=== PATIENT | male | born 1990 | race Caucasian/White ===

== ENCOUNTER 2019-12-05 00:29 | Emergency (ER) | payer OTHER ==
[~2019-12-05] VITALS: Ht 175.3 cm; Wt 65.0 kg
[2019-12-05] MEDS ORDERED: HALOPERIDOL LACTATE 5MG/ML VIAL IM ONE (02:00)
[2019-12-05] MEDS ORDERED: LORAZEPAM 2MG/ML CPJ IM ONE (02:00)
[2019-12-05 02:21] LABS: CHLORIDE 105 mEq/L (98-107)
[2019-12-05 02:28] LABS: ETHANOL BLOOD < 10 mg/dL
[2019-12-05 02:44] LABS: EOSINOPHILS % 2.1 % (0.0-5.0); HEMATOCRIT. 41.4 % (42.0-52.0); HEMOGLOBIN. 14.9 g/dL (14.0-18.0); LYMPHOCYTES % 17.1 % (20.0-50.0); MEAN CORPUSCULAR HEMOGLOBIN 34.5 pg (28.0-32.0); MEAN CORPUSCULAR VOLUME 95.8 fL (80.0-94.0); MEAN PLATELET VOLUME 8.1 fl (7.4-10.4); MONOCYTES % 8.1 % (2.0-8.0); NEUTROPHILS % 71.7 % (40.0-76.0); PLATELET 261 x1000/uL (130-400); RED BLOOD CELL COUNT 4.32 mill/uL (4.7-6.1); RED CELL DISTRIBUTION WIDTH 13.6 % (11.6-14.6)
[2019-12-05 02:53] LABS: CLARITY URINE CLEAR (CLEAR); COLOR URINE YELLOW (YELLOW); KETONES URINE 2+ (NEGATIVE); LEUKOCYTE ESTERASE URINE NEGATIVE (NEGATIVE); NITRITE URINE NEGATIVE (NEGATIVE); OCCULT BLOOD URINE NEGATIVE (NEGATIVE); PH URINE 6.5 (4.5-8.0); PROTEIN URINE NEGATIVE (NEGATIVE); SPECIFIC GRAVITY URINE 1.011 (1.005-1.030); UROBILINOGEN URINE 0.2 E.U./dL (0.2-1.0)
[2019-12-05 03:14] LABS: *AMPHETAMINES SCREEN URINE PRESUMTIVE POSITIVE (NEGATIVE); *BARBITURATES SCREEN URINE NEGATIVE (NEGATIVE); *BENZODIAZEPINES SCREEN URINE NEGATIVE (NEGATIVE); *COCAINE SCREEN URINE NEGATIVE (NEGATIVE); METHADONE URINE SCREEN NEGATIVE (NEGATIVE); OPIATES URINE SCREEN NEGATIVE (NEGATIVE)
[2019-12-05 03:15] LABS: CANNABINOID URINE SCREEN NEGATIVE (NEGATIVE); PHENCYCLIDINE URINE SCREEN NEGATIVE (NEGATIVE)
[2019-12-05] MEDS ORDERED: POTASSIUM CHLORIDE 20MEQ TABLET SR PO SCH (04:15)
[2019-12-05 12:45] VITALS: BP 101/58
== END 2019-12-05 13:13 | disposition home or self-care (01) ==
LOC: ER 01:00
DX: R45.851 Suicidal ideations (principal); F15.10 Other stimulant abuse, uncomplicated; E87.6 Hypokalemia; R74.8 Abnormal levels of other serum enzymes
CPT/HCPCS: 36415; 80053; 80305; 80307; 80320; 80329; 81003; 82962; 85025; 93005; 99285; G0480

== ENCOUNTER 2021-02-23 08:25 | Emergency (ER) | payer OTHER ==
[~2021-02-23] VITALS: Ht 180.3 cm; Wt 82.0 kg
[2021-02-23 08:34] VITALS: BP 128/77
== END 2021-02-23 09:39 | disposition home or self-care (01) ==
LOC: ER 08:25
DX: M25.511 Pain in right shoulder (principal); Y08.89XA Assault by other specified means, initial encounter; Y93.89 Activity, other specified; Y92.9 Unspecified place or not applicable
CPT/HCPCS: 99281

== ENCOUNTER 2021-07-27 06:31 | Emergency (ER) | payer OTHER ==
[~2021-07-27] VITALS: Ht 172.7 cm; Wt 75.0 kg
[2021-07-27 07:00] VITALS: BP 133/66
[2021-07-27] MEDS ORDERED: CEPH500T MT (07:16)
[2021-07-27] MEDS ORDERED: DOXY100C5 MT (07:16)
== END 2021-07-27 07:30 | disposition home or self-care (01) ==
LOC: ER 06:31
DX: L03.113 Cellulitis of right upper limb (principal)
CPT/HCPCS: 99283

== ENCOUNTER 2021-07-29 15:40 | Emergency (ER) | payer OTHER ==
[~2021-07-29] VITALS: Ht 172.7 cm; Wt 71.0 kg
[~2021-07-29 15:40] MED LIST: CEPH500T MT; DOXY100C5 MT
[2021-07-29 15:49] VITALS: BP 105/69
== END 2021-07-29 16:38 | disposition home or self-care (01) ==
LOC: ER 15:40
DX: Z13.9 Encounter for screening, unspecified (principal); Z20.822 Contact with and (suspected) exposure to COVID-19
CPT/HCPCS: 99283; C9803; U0003; U0005; Z7610

== ENCOUNTER 2024-01-18 23:37 | Emergency (ER) | payer MEDICAID ==
[~2024-01-18] VITALS: Ht 175.3 cm; Wt 73.0 kg
[~2024-01-18 23:37] MED LIST changes: +APIX2.5T MT; -CEPH500T MT; -DOXY100C5 MT; +HYDR-4001 MT
[2024-01-18 23:50] VITALS: O2SAT 97
[2024-01-19] MEDS ORDERED: NALO4SPR BOTHNSTRLS (02:08)
[2024-01-19 02:23] VITALS: BP 96/56; PULSE 74; RESP 13; TEMP 98.4
== END 2024-01-19 02:47 | disposition home or self-care (01) ==
LOC: ER 23:37
DX: T40.411A Poisoning by fentanyl or fentanyl analogs, accidental (unintentional), initial encounter (principal); X58.XXXA Exposure to other specified factors, initial encounter
CPT/HCPCS: 99283